=== PATIENT | male | born 1965 | race Two or more races ===

== ENCOUNTER 2019-09-08 04:26 | Emergency (ER) | payer OTHER ==
[2019-09-08 04:42] VITALS: BP 132/79; PULSE 69; TEMP 98; BMI 31.3
--- NOTE | 2019-09-08 04:49 | PDOC ---
History of Present Illness - General Chief Complaint: Nausea Stated Complaint: NAUSEA/CHEST DISCOMFORT Time Seen by Provider: 09/08/19 04:41 Past History - Past Medical History Allergies/Adverse Reactions: Allergies Allergy/AdvReac Type Severity Reaction Status Date / Time No Known Allergies Allergy Verified 09/08/19 04:41 Home Medications: Ambulatory Orders NK [No Known Home Medication] 09/08/19 - Immunization History Immunization Up to Date: No - Psycho Social/Smoking Cessation Hx Smoking Status: Yes (3 boxes non cigarette) Smoking History: Never smoked Have you smoked in the past 12 months: No Number of Cigarettes Smoked Daily: 0 Information on smoking cessation initiated: No Hx Alcohol Use: No Drug/Substance Use Hx: No *Physical Exam - Vital Signs Last Vital Signs Temp Pulse Resp BP Pulse Ox 98.0 F 69 18 132/79 98 09/08/19 04:41 09/08/19 04:41 09/08/19 04:41 09/08/19 04:41 09/08/19 04:41 ED Treatment Course - LABORATORY CBC & Chemistry Diagram: 09/08/19 05:15 09/08/19 05:15 Medical Decision Making - Medical Decision Making 09/08/19 06:09 HPI: 53yo M hx obesity and smoking (hookah) presents from home with 2 days intermittent vertigo, R-sided neck pain, nausea, b/l ear pain R>L, intermittent blurry vision, and bitemporal headache; and 2 hours sudden onset chest pain, diaphoresis, vertigo, and headache at 0300 today, with some improvement s/p baby aspirin. Currently only slight headache, nausea, and chest pain remain. R- sided neck pain like cold blood gushing towards head, intermittent, atraumatic. Intermittent blurry vision, resolved. Did have similar vertigo sx years ago when had ear infection, but denies hx other current sx. Chest pain L-sided, nonradiating, "gushing" type, intermittent since acute onset waking him from sleep at 0300 today, associated with diaphoresis and nausea and vertigo, improving s/p baby aspirin. Headache bitemporal, pressure type, mild, intermittent, nothing makes better or worse, gradual onset. Pt's father dies of cancer at 52yo so pt is most concerned about brain cancer. Denies hx CAD, FHx, CAD, tinnitus, neck stiffness, jaw pain, lightheadedness, syncope, head injury, trauma, fall, fever, chills, fatigue, numbness/tingling, weakness, shortness of breath, cough, palpitations, leg swelling, abdominal pain, blood in stool, diarrhea, constipation, vomiting, dysuria, hematuria, confusion, hx DVT/PE, hemoptysis, calf tenderness, recent travel, recent surgery, recent illness, myalgias. PCP - Cece ROS: Constitutional: Positive for diaphoresis. Negative for chills, fever, fatigue. HENT: Positive for ear pain. Negative for sore throat, rhinorrhea, congestion. Eyes: Positive for intermittent blurry vision, resolved. Respiratory: Negative for shortness of breath, cough, and wheezing. Cardiovascular: Positive for chest pain. Negative for palpitations, and leg swelling. Gastrointestinal: Positive for nausea. Negative for abdominal pain, blood in stool, constipation, diarrhea, and vomiting. Genitourinary: Negative for dysuria, flank pain, and hematuria. Musculoskeletal: Positive for R-sided neck pain. Negative for myalgias, back pain. Skin: Negative for rash. Neurological: Positive for vertigo and headaches. Negative for light-headedness , dizziness, syncope, weakness, numbness. Psychiatric/Behavioral: Negative for behavioral problems and confusion. PE: Gen: Alert, NAD, comfortable-appearing. HEENT: PERRL, EOMI, MMM, NCAT. +bitemporal TTP. No conjunctival pallor. Sclera are non-icteric. Oropharynx is clear. Supple neck. The ear canals and tympanic membranes are normal. CV: Regular rate and rhythm. No murmurs, rubs, or gallops. PULM: No resp distress. CTAB, no wheezes, rales, or rhonchi. ABD: soft, NT/ND, no rebound tenderness or guarding, no CVA tenderness. BACK: No TTP of c/t/l-spine. No step-offs or deformities. MSK: No bony deformities. 2+ pulses in all extremities. NEURO: AAOx3. PERRL. CN 2-12 intact. 5/5 strength in all extremities. Sensation to light touch intact in all extremities. No pronator drift. No dysmetria. No dysdiadochokinesia. No abnormal nystagmus. Normal gait. EXTREMITIES: No cyanosis. No clubbing. No edema. No calf tenderness. PSYCH: Normal mood and thought pattern. SKIN: Warm and dry. Normal capillary refill. No rashes. No jaundice. MDM: 53yo M hx obesity and smoking (hookah) presents from home with 2 days intermittent vertigo, R-sided neck pain, nausea, b/l ear pain R>L, intermittent blurry vision, and bitemporal headache; and 2 hours sudden onset chest pain, diaphoresis, vertigo, and headache at 0300 today, with some improvement s/p baby aspirin. Currently only slight headache, nausea, and chest pain remain. Hemodynamically stable, afebrile, neurologically intact. Vertigo consistent with BPPV. No nystagmus, gait abnormalities, or dysdiadochokinesia concerning for central etiology of vertigo such as cerebellar stroke; no nystagmus or vertigo at this time so HiNTS exam not indicated; no further testing indicated at this time. No hearing loss or tinnitus indicating labyrinthitis, meniere's disease, or CN VIII tumor; benign ear exam. Bitemporal headache consistent with tension headache. Bitemporal TTP, lack of jaw pain, lack of vision abnormalities, and presentation not concerning for GCA. No eye exam abnormalities or vision changes concerning for acute glaucoma. Presentation, including lack of fever, photophobia, neck stiffness, trauma/head injury/fall, syncope, or thunderclap headache, not concerning for emergent etiology such as SAH or meningitis or ICH. Due to Fhx brain cancer and headache w/o hx headaches, consider CTH - discussion with pt and pt really concerned for brain cancer and would like CTH. Very low concern for carotid artery dissection due to hemodynamic stability, lack of neurologic deficits, and lack of trauma or inciting event. Chest pain: Low concern for ACS/IL or arrhythmia due to lack of arrhythmia or signs of ischemia on EKG, trop neg, onset at rest, and lack of association with numbness or SOB, but due to association with nausea and diaphoresis and HEART score 3 (age, smoking, obesity, moderately suspicious story) - r/o ACS/IL with troponin x2 and consider tele obs admission. Low concern for pulmonary etiology due to non pleuritic nature of CP, lack of cough or SOB, and lungs CTAB, but r/ o PNA, COPD exacerbation, and PTX with CXR and labs. Lack of SOB, RFs/inciting events, or tachycardia, make PE of very low concern, Wells 0 -no further testing indicated. Lack of tearing nature of chest pain, lack of back pain, lack of hemodynamic instability, and pulses equal bilaterally, dissection of very low concern - evaluate CXR for widened mediastinum; no further testing indicated. Also consider infectious etiologies, anemia, thyroid abnormalities, or metabolic derangements. -EKG -CXR -CTH -CBC,CMP,Coags,Mg,Phos,Cardiac profile (trop x2),Lipase,TSH -Meclizine,Tylenol,IVF,Reglan -Dispo: pending w/u, likely d/c home vs admit tele obs ACS r/o 09/08/19 06:39 EKG reviewed: sinus bradycardia with arrhythmia, 55bpm, normal intervals, normal axis, no TWIs, no ST elevations, no significant changes compared to prior 10/18/2011 Labs reviewed. CBC,CMP WBC 5.8 K/mm3 (4.0-10.0) 09/08/19 05:15 RBC 4.94 M/mm3 (4.00-5.60) 09/08/19 05:15 Hgb 14.6 GM/dL (11.7-16.9) 09/08/19 05:15 Hct 42.3 % (35.4-49) 09/08/19 05:15 MCV 85.8 fl (80-96) 09/08/19 05:15 MCH 29.6 pg (25.7-33.7) 09/08/19 05:15 MCHC 34.5 g/dl (32.0-35.9) 09/08/19 05:15 RDW 12.8 % (11.9-15.9) 09/08/19 05:15 Plt Count 248 K/MM3 (134-434) 09/08/19 05:15 MPV 7.8 fl (7.5-11.1) 09/08/19 05:15 Absolute Neuts (auto) 2.8 K/mm3 (1.5-8.0) 09/08/19 05:15 Neutrophils % 49.1 % (42.8-82.8) D 09/08/19 05:15 Lymphocytes % 40.3 % (8-40) H D 09/08/19 05:15 Monocytes % 8.4 % (3.8-10.2) 09/08/19 05:15 Eosinophils % 1.7 % (0-4.5) 09/08/19 05:15 Basophils % 0.5 % (0-2.0) 09/08/19 05:15 Nucleated RBC % 0 % (0-0) 09/08/19 05:15 ESR Cancelled 09/08/19 05:15 Sodium 138 mmol/L (136-145) 09/08/19 05:15 Potassium 4.0 mmol/L (3.5-5.1) 09/08/19 05:15 Chloride 106 mmol/L (98-107) 09/08/19 05:15 Carbon Dioxide 24 mmol/L (21-32) 09/08/19 05:15 Anion Gap 8 MMOL/L (8-16) 09/08/19 05:15 BUN 16.1 mg/dL (7-18) 09/08/19 05:15 Creatinine 1.2 mg/dL (0.55-1.3) 09/08/19 05:15 Est GFR (CKD-EPI)AfAm 79.53 09/08/19 05:15 Est GFR (CKD-EPI)NonAf 68.62 09/08/19 05:15 Random Glucose 128 mg/dL (74-106) H 09/08/19 05:15 Calcium 9.1 mg/dL (8.5-10.1) 09/08/19 05:15 Magnesium 2.0 mg/dL (1.8-2.4) 09/08/19 05:15 Total Bilirubin 0.3 mg/dL (0.2-1) 09/08/19 05:15 AST 18 U/L (15-37) 09/08/19 05:15 ALT 34 U/L (13-61) 09/08/19 05:15 Alkaline Phosphatase 58 U/L (45-117) 09/08/19 05:15 Creatine Kinase 253 U/L (26-308) 09/08/19 05:15 Troponin I < 0.02 ng/ml (0.00-0.05) 09/08/19 05:15 C-Reactive Protein Cancelled 09/08/19 05:15 Total Protein 7.0 g/dl (6.4-8.2) 09/08/19 05:15 Albumin 3.8 g/dl (3.4-5.0) 09/08/19 05:15 Lipase 170 U/L (73-393) 09/08/19 05:15 09/08/19 07:10 TSH elevated. Added on free T3 and free T4. CT read ([facility]): negative for acute pathology Signed out to Dr Salomon. Discharge - Follow up/Referral Referrals: Charan Zhao MD [Primary Care Provider] - Nixon Alberts MD [Staff Physician] - - Patient Discharge Instructions Additional Instructions: You have been seen in the Emergency Department for your chest pain and dizziness. Your EKG, labs, chest X-Ray, and CT scan of your head show no signs of an emergent condition at this time. Follow-up with your primary care doctor within 1 week. Make sure to tell him that your TSH is elevated so he may want to do further testing of your thyroid. We have given you a referral to a Neurologist (brain doctor) Dr. Alberts - call his office to make a follow-up appointment for further evaluation. Return to the Emergency Department immediately if you experience vision changes , fever, severe headache not controlled by over the counter medications, number or tingling, difficulty breathing, passing out, or any other new or worsening symptoms. - Post Discharge Activity
--- NOTE | 2019-09-08 04:57 | PDOC ---
Attending Attestation - Resident Resident Name: MichelecamiloCintia - ED Attending Attestation I have performed the following: I have examined & evaluated the patient, The case was reviewed & discussed with the resident, I agree w/resident's findings & plan - HPI HPI: 09/08/19 06:08 53 YOM with h/o smoking presenting with intermittent vertigo, R-sided neck pain, nausea, b/l ear pain R>L, intermittent blurry vision, and bitemporal headache; and 2 hours sudden onset chest pain at 3AM, a/w diaphoresis, vertigo, and headache, with some improvement s/p baby aspirin. Currently only slight headache, nausea, and chest pain remain. 09/08/19 06:47 - Physicial Exam PE: 09/08/19 04:56 Agree with the resident's HPI and PE as documented in the electronic medical record. NAD, well appearing, EOMI, PERRL, nl conjunctiva, anicteric; neck supple. lungs clear, RRR, abdomen soft nontender. No rebound, no guarding. Back nontender. CONDE x4, no focal neuro deficits. No peripheral edema. normal color for ethnicity , WWP. speech clear. normal mentation, gait stable. 5/5 prox and distal strength, SILT in all extrem 09/08/19 06:47 - Medical Decision Making 09/08/19 04:56 Vital Signs Temp Pulse Resp BP Pulse Ox 98.0 F 69 18 132/79 98 09/08/19 04:41 09/08/19 04:41 09/08/19 04:41 09/08/19 04:41 09/08/19 04:41 DDx chest pain: ACS, coronary vasospasm, NSTEMI, arrhythmia, unstable angina, PE , dissection, PUD, esophageal spasm, GERD, gastritis, costochondritis, pneumonia , pleurisy, pericarditis/myocarditis. dehydration, electrolyte/metabolic derangements. [employer] mass/bleed. Considered but clinically doubt based on HPI and PE: Low suspicion for pulmonary embolism or dissection. EKG normal sinus rhythm, no interval abnormalities, narrow QRS, ST and T wave segments and morphology normal. nonspecific T wave flattening in III only. Chest pain Heart score; HEART score 2 which denotes Low risk and probability for ACS, less than 1% risk for MACE at 4-6 wks trop neg initially, needs 2nd/EKG chest pain free remainder of labs and lytes wnl. Cr wnl. CTH CXR s/o day team, pending reeval and imaging results, second trop/EKG, ultimate dispo. advised to stop smoking hookah. 09/08/19 06:10 09/08/19 06:48 Heart Score/ECG Review - History History: Slightly suspicious - Electrocardiogram EKG: Normal - Age Age: 45-65 - Risk Factors Risk Factors Heart Score: Yes Smoking History Based on the list above the patient has:: 1-2 risk factors - Troponin Troponin: </= normal limit - Score Heart Score - Total: 2 #1 ECG reviewed & interpreted by me at: 05:05 General ECG Interpretation: Sinus Rhythm, Normal Intervals 09/08/19 06:09 sinus rhythm nonspecific T wave flattening in III only, no ST elevations or depressions. normal axis, narrow QRS.
[2019-09-08 05:35] LABS: BASO % 0.5 % (0-2.0); EOS % 1.7 % (0-4.5); HEMATOCRIT 42.3 % (35.4-49); HEMOGLOBIN 14.6 GM/dL (11.7-16.9); LYMPH % 40.3 % (8-40); MCH 29.6 pg (25.7-33.7); MCHC 34.5 g/dl (32.0-35.9); MEAN CELL VOLUME 85.8 fl (80-96); MEAN PLT VOLUME 7.8 fl (7.5-11.1); MONO % 8.4 % (3.8-10.2); NEUT % 49.1 % (42.8-82.8); PLATELET COUNT 248 K/MM3 (134-434); RBC 4.94 M/mm3 (4.00-5.60); RDW 12.8 % (11.9-15.9); WHITE BLOOD COUNT 5.8 K/mm3 (4.0-10.0)
[2019-09-08 05:42] LABS: INR 0.97 (0.83-1.09); PROTHROMBIN TIME (PATIENT) 11.4 SEC (9.7-13.0)
[2019-09-08] MEDS ORDERED: METOCLOPRAMIDE HCL INJECTION 10 MG/2 ML VIAL IVPB ONE (05:47)
[2019-09-08] MEDS ORDERED: MECLIZINE HCL 25 MG TABLET (FP) PO ONE (05:47)
[2019-09-08] MEDS ORDERED: ACETAMINOPHEN 500 MG TABLET (FP) PO ONE (05:47)
[2019-09-08] MEDS ORDERED: SODIUM CHLORIDE 0.9% 500 ML INFUS.BAG IV ONE (05:47)
[2019-09-08] MEDS ORDERED: ACETAMINOPHEN 325 MG TABLET (FP) ONE (05:58)
[2019-09-08] MEDS ORDERED: METOCLOPRAMIDE HCL INJECTION 10 MG/2 ML VIAL ONE (05:59)
[2019-09-08] MEDS ORDERED: MECLIZINE HCL 25 MG TABLET (FP) ONE (05:59)
[2019-09-08 06:40] LABS: ALBUMIN 3.8 g/dl (3.4-5.0); ALK PHOS 58 U/L (45-117); ANION GAP 8 MMOL/L (8-16); BILIRUBIN,TOTAL 0.3 mg/dL (0.2-1); BLOOD UREA NITROGEN 16.1 mg/dL (7-18); CALCIUM 9.1 mg/dL (8.5-10.1); CHLORIDE 106 mmol/L (98-107); CO2 24 mmol/L (21-32); CREATININE 1.2 mg/dL (0.55-1.3); GLUCOSE,RANDOM 128 mg/dL (74-106); LIPASE 170 U/L (73-393); SGOT/AST 18 U/L (15-37); SGPT/ALT 34 U/L (13-61); SODIUM 138 mmol/L (136-145)
[2019-09-08 07:01] LABS: PHOSPHOROUS 3.5 mg/dL (2.5-4.9)
--- NOTE | 2019-09-08 07:09 | PDOC ---
*Physical Exam - Vital Signs Last Vital Signs Temp Pulse Resp BP Pulse Ox 98.0 F 69 18 132/79 98 09/08/19 04:41 09/08/19 04:41 09/08/19 04:41 09/08/19 04:41 09/08/19 04:41 ED Treatment Course - LABORATORY CBC & Chemistry Diagram: 09/08/19 05:15 09/08/19 05:15 - ADDITIONAL ORDERS Additional order review: Laboratory Results 09/08/19 09/08/19 09/08/19 05:15 05:15 05:15 PT with INR 11.40 INR 0.97 Sodium 138 Potassium 4.0 Chloride 106 Carbon Dioxide 24 Anion Gap 8 BUN 16.1 Creatinine 1.2 Est GFR (CKD-EPI)AfAm 79.53 Est GFR (CKD-EPI)NonAf 68.62 Random Glucose 128 H Calcium 9.1 Phosphorus 3.5 Magnesium 2.0 Total Bilirubin 0.3 AST 18 ALT 34 Alkaline Phosphatase 58 Creatine Kinase 253 Troponin I < 0.02 C-Reactive Protein Cancelled Total Protein 7.0 Albumin 3.8 Lipase 170 TSH 5.00 H 09/08/19 05:15 RBC 4.94 MCV 85.8 MCHC 34.5 RDW 12.8 MPV 7.8 Neutrophils % 49.1 D Lymphocytes % 40.3 H D Monocytes % 8.4 Eosinophils % 1.7 Basophils % 0.5 - Medications Given in the ED: ED Medications Discontinued Medications Generic Name Dose Route Start Last Admin Trade Name Freq PRN Reason Stop Dose Admin Acetaminophen 975 mg 09/08/19 05:47 09/08/19 06:05 Tylenol - PO 09/08/19 05:48 975 mg ONCE ONE Administration Meclizine HCl 25 mg 09/08/19 05:47 09/08/19 06:05 Antivert - PO 09/08/19 05:48 25 mg ONCE ONE Administration Metoclopramide HCl 10 mg 09/08/19 05:47 09/08/19 06:05 Reglan Injection - IVPB 09/08/19 05:48 10 mg ONCE ONE Administration Sodium Chloride 1,000 ml 09/08/19 05:47 09/08/19 06:05 Normal Saline - IV 09/08/19 05:48 1,000 ml ONCE ONE Administration Medical Decision Making - Medical Decision Making 09/08/19 07:09 Signed off from night team 53yo M hx obesity and smoking (hookah) presents from home with 2 days intermittent vertigo and 2 hours chest pain. Likely d/t dehydration. Low concern for ACS (NSR EKG, neg trop) vs anemia (normal Hgb). Head CT did not show any acute bleed/infarct/mass. TSH elevated 5 with normal T4. Pt's symptoms resolved w meclizine, tylenol, IVF, reglan. Pt left AMA before 2nd trop, CXR completed. Pt went home w PCP/neuro f/u and meclizine prescription Discharge - Discharge Information Problems reviewed: Yes Clinical Impression/Diagnosis: Vertigo Chest pain Qualifiers: Chest pain type: unspecified Qualified Code(s): R07.9 - Chest pain, unspecified Condition: Good Disposition: AGAINST MEDICAL ADVICE - Admission No - Additional Discharge Information Prescriptions: Meclizine HCl 25 mg PO DAILY #14 tablet Meclizine HCl 25 mg PO DAILY #14 tablet - Follow up/Referral Referrals: Nixon Alberts MD [Staff Physician] - Charan Zhao MD [Primary Care Provider] - - Patient Discharge Instructions Additional Instructions: You have been seen in the Emergency Department for your chest pain and dizziness. Your EKG, labs, and CT scan of your head show no signs of an emergent condition at this time. You decided to leave against medical advice before all of your workup was complete Follow-up with your primary care doctor within the next few days. Make sure to tell him that your TSH is elevated so he may want to do further testing of your thyroid. We have given you a referral to a Neurologist (brain doctor) Dr. Alberts - call his office to make a follow-up appointment for further evaluation if you continue to have dizziness. Drink lots of water Return to the Emergency Department immediately if you experience vision changes , fever, severe headache not controlled by over the counter medications, number or tingling, difficulty breathing, passing out, or any other new or worsening symptoms. - Post Discharge Activity
--- NOTE | 2019-09-08 11:49 | EKG ---
Test Reason : Blood Pressure : / mmHG Vent. Rate : 055 BPM Atrial Rate : 055 BPM P-R Int : 192 ms QRS Dur : 094 ms QT Int : 404 ms P-R-T Axes : 043 023 029 degrees QTc Int : 386 ms SINUS BRADYCARDIA OTHERWISE NORMAL ECG WHEN COMPARED WITH ECG OF 18-OCT-2011 04:08, NO SIGNIFICANT CHANGE WAS FOUND Confirmed by TAYLER JOSEPH MD ([id number]) on 09/08/2019 11:49:32 AM Referred By: Confirmed By:TAYLER JOSEPH MD
== END 2019-09-08 08:00 | disposition left against medical advice (07) ==
LOC: JER 04:26
PROC: 3E033GC Introduction of Other Therapeutic Substance into Peripheral Vein, Percutaneous Approach (ICD-10-PCS; principal; 2019-09-08)
DX: R07.9 Chest pain, unspecified (principal); R42 Dizziness and giddiness; E66.9 Obesity, unspecified; Z68.31 Body mass index [BMI] 31.0-31.9, adult; F17.290 Nicotine dependence, other tobacco product, uncomplicated
CPT/HCPCS: 36415; 70450-TC; 80053; 82550; 82553; 83690; 83735; 84100; 84436; 84439; 84443; 84481; 84484; 85025; 85610; 93005; 93010; 99283-25